=== PATIENT | female | born 1950 | race Caucasian/White ===

== ENCOUNTER 2016-12-30 18:55 | Emergency (ER) | payer OTHER ==
[2016-12-30 19:17] VITALS: RESP 18
--- NOTE | 2016-12-30 20:04 | EDPHY ---
H & P Time Seen by Provider: 12/30/16 19:54 HPI/ROS: CHIEF COMPLAINT: Right leg swelling HISTORY OF PRESENT ILLNESS: Once ago patient was mowing the lawn thought she pulled a muscle. Over the last week she has had swelling in her right leg and over the last 24 hours to little bit red painful. No chest pain or shortness of breath. No direct trauma. No weakness or numbness in the foot. REVIEW OF SYSTEMS: Cardiac: no chest pain or syncope Pulmonary: no cough or SOB Constitutional: no fever PAST MEDICAL HISTORY: Migraines, epilepsy Social history: Here with her daughter General Appearance: Alert and conversant, cooperative. Normal respiratory effort. Neurological: Alert and oriented x3. Normally conversant. Face symmetric, normal movement and sensation in all extremities. Skin: Slight erythema from the distal 3rd of the right lower leg to mid foot. Not warmer than the other leg. No blisters or eschar or crepitus and no lymphangitis. 3 cm bruise behind the right knee. Musculoskeletal: Good range of motion of the right hip knee and ankle. She has a little bit of difficulty with full flexion of the right knee because of pain behind it. She has 2+ pedal edema on the right lower extremity but compartments are soft and there is no bony tenderness. She has a palpable dorsalis pedis pulse and normal motor and sensory distally. Emergency Department course/MDM: Ultrasound of the right lower extremity discussed and consented. 2100: 15 cm Oreilly cyst per Dr. Abda, no DVT. Results discussed with patient and daughter. Orthopedic follow-up. At this point I think cellulitis or compartment syndrome or DVT or arterial occlusion or fracture are all unlikely. Constitutional: Initial Vital Signs Temperature (C) 37 C 12/30/16 19:12 Heart Rate 91 12/30/16 19:12 Respiratory Rate 18 12/30/16 19:12 Blood Pressure 139/85 H 12/30/16 19:12 O2 Sat (%) 92 12/30/16 19:12 O2 Delivery Mode Room Air Allergies/Adverse Reactions: papaya Allergy (Severe, Verified 12/30/16 19:19) Unknown erythromycin base Allergy (Intermediate, Verified 12/30/16 19:19) Vomiting wheat Allergy (Intermediate, Verified 12/30/16 19:19) Other-Enter Comments Home Medications: Medication Instructions Recorded Excedrin Tablet (*) 12/30/16 P5p Vitamin B 12/30/16 Sumatriptan 12/30/16 Zinc 12/30/16 Medical Decision Making - Diagnostics Imaging Results: Imaging Impressions Extremity Venous Study 12/30/16 20:04 Impression: 1. There is no sonographic evidence of deep or superficial vein thrombosis in the right lower extremity. 2. There is a complex Oreilly's cyst in the popliteal fossa extending caudally, measuring 14.8 cm in length. Findings were discussed with ABIGAIL JUAREZ MD at 21:00, on 12/30/2016. Departure - Departure Disposition: Home, Routine, Self-Care Clinical Impression: Oreilly's cyst of knee Qualifiers: Laterality: right Qualified Code(s): M71.21 - Synovial cyst of popliteal space [Oreilly], right knee Condition: Good Instructions: Bakers Cyst (ED) Referrals: PENELOPE WILSON [Other] - As per Instructions Viktor Lynch MD [Medical Doctor] - As per Instructions (Activity as tolerated. Follow up with Orthopedics this week for further evaluation.)
[2016-12-30 21:47] VITALS: BP 127/79; PULSE 85; TEMP 98.2; O2SAT 90
== END 2016-12-30 21:46 | disposition home or self-care (01) ==
DX: M71.21 Synovial cyst of popliteal space [Baker], right knee (principal)